=== PATIENT | female | born 1930 | race Caucasian/White ===

== ENCOUNTER 2016-08-03 10:12 | Outpatient (CLI) | payer MEDICARE, OTHER | END 2016-08-03 10:13 | disposition critical access hospital (66) | DX: R55 Syncope and collapse (principal); R42 Dizziness and giddiness; R03.1 Nonspecific low blood-pressure reading | CPT/HCPCS: A0425; A0427 ==

== ENCOUNTER 2016-08-03 10:32 | Emergency (ER) | payer MEDICARE, OTHER ==
--- NOTE | 2016-08-03 11:27 | ED Physician Documentation ---
PD HPI ALTERED MENTAL STATUS - Stated complaint Stated Complaint: SYNCOPE - Chief complaint Chief Complaint: General - History obtained from History obtained from: Patient - History of Present Illness Timing - onset: Today Timing - duration: Minutes Timing - details: Abrupt onset, Now resolved Quality / character: Less responsive (She was sitting on toilet and then had less alertness, near syncope. Was pale. EMS arrived and got her flat and gave some IV fluids with prompt improvement. She is feeling okay enroute.) Associated symptoms: No: Fever, Headache, Cough, NVD Contributing factors: No: Recent med change, Recent illness Basline status: Alert and oriented X 3 Similar symptoms before: No diagnosis (has had some near fainting on toilet in the past.) Review of Systems Constitutional: denies: Fever, Chills Nose: denies: Rhinorrhea / runny nose, Congestion Throat: denies: Sore throat Cardiac: denies: Chest pain / pressure, Palpitations, Pedal edema, Calf pain Respiratory: denies: Dyspnea, Cough, Wheezing GI: denies: Abdominal Pain, Nausea, Vomiting, Diarrhea : denies: Dysuria, Frequency Skin: denies: Rash Neurologic: reports: Generalized weakness, Near syncope. denies: Focal weakness , Numbness, Difficulty speaking, Confused Endocrine: denies: Weight loss, Easy bruising / bleeding PD PAST MEDICAL HISTORY - Past Medical History Cardiovascular: Angina, [place] Respiratory: None Neuro: Parkinson's Endocrine/Autoimmune: Type 2 diabetes GI: GERD, Ulcers, Hiatal hernia PROPOSAL ANALYST: None : None HEENT: None Psych: Anxiety Musculoskeletal: None Derm: None - Past Surgical History Past Surgical History: Yes General: Cholecystectomy, Appendectomy /PROPOSAL ANALYST: Hysterectomy HEENT: Cataracts - Present Medications Home Medications: Ambulatory Orders Medication Instructions Recorded Confirmed Entacapone [Comtan] 200 mg PO QID 04/10/13 12/01/15 Carbidopa/Levodopa 25/100 [Sinemet 2 cap PO QID 12/17/13 12/01/15 25 mg/100 mg] ALPRAZolam [Xanax] 0.5 PRN 05/06/15 05/06/15 Multivitamin W/Minerals [Theragran 1 tab PO DAILY 10/26/15 10/26/15 M] Zolpidem [Ambien] 5 12/01/15 raNITIdine [Zantac] 12/01/15 - Allergies Allergies/Adverse Reactions: Allergies Allergy/AdvReac Type Severity Reaction Status Date / Time Erythropoietin Analogues Allergy Unknown Unknown Verified 05/25/14 11:04 hydrocodone bitartrate * Allergy Unknown Unknown Verified 05/25/14 11:04 [From Vicodin] Iodinated Contrast Media - Allergy Unknown Unknown Verified 05/25/14 11:04 Oral and [Iodinated Contrast Media - IV Dye] Penicillins Allergy Unknown Unknown Verified 05/25/14 11:04 ropinirole HCl * Allergy Unknown Unknown Verified 05/25/14 11:04 [From Requip] celecoxib [From Celebrex] Allergy Unknown Verified 05/06/15 14:09 cephalexin Allergy Unknown Verified 05/06/15 14:09 diclofenac sodium * Allergy Unknown Verified 05/06/15 14:09 [From Voltaren] Iodine and Iodide Containing Allergy Unknown Verified 05/06/15 14:09 Produc omeprazole [From Prilosec] Allergy jasvir Verified 05/25/14 11:04 swelling omeprazole magnesium * Allergy jasvir Verified 05/25/14 11:04 [From Prilosec] swelling peanut Allergy Unknown Verified 05/25/14 11:04 Tetracyclines Allergy Unknown Verified 05/06/15 14:09 - Social History Does the pt smoke?: No Smoking Status: Never smoker Does the pt drink ETOH?: Yes Does the pt have substance abuse?: No - Immunizations Immunizations are current?: Yes - POLST Patient has POLST: Yes POLST Status: Full Code PD ED PE NORMAL - Vitals Vital signs reviewed: Yes - General General: Alert and oriented X 3, No acute distress, Well developed/nourished - HEENT HEENT: Atraumatic, Moist mucous membranes, Pharynx benign - Neck Neck: Supple, no meningeal sign, No adenopathy, No JVD, No bruit - Cardiac Cardiac: RRR, No murmur - Respiratory Respiratory: Clear bilaterally - Abdomen Abdomen: Soft, Non tender - Female Female : Deferred - Rectal Rectal: Other (guiac negative stool in vault. 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 No: ST elevation c/w ischemia, ST depression Compare to prior EKG: Unchanged from prior EKG - Labs Labs: Laboratory Tests 08/03/16 08/03/16 08/03/16 11:55 11:55 11:55 WBC 6.9 RBC 4.05 L Hgb 13.4 Hct 38.6 MCV 95.3 MCH 33.1 H MCHC 34.8 RDW 14.0 Plt Count 132 MPV 8.7 Neut # 6.5 Lymph # 0.1 L Wheeler # 0.2 Eos # 0.0 Baso # 0.1 Absolute Nucleated RBC 0.00 Nucleated RBCs 0.0 Sodium 136 Potassium 3.9 Chloride 103 Carbon Dioxide 23 Anion Gap 10.0 BUN 30 H Creatinine 0.9 Estimated GFR (MDRD) 59 L Glucose 154 H Calcium 8.4 L Magnesium 2.1 Total Bilirubin 0.9 AST 27 ALT < 10 L Alkaline Phosphatase 48 Troponin I < 0.04 Total Protein 5.8 L Albumin 3.6 Globulin 2.2 Albumin/Globulin Ratio 1.6 Lipase 24 Urine Color Urine Clarity Urine pH Ur Specific Golden Urine Protein Urine Glucose (UA) Urine Ketones Urine Occult Blood Urine Nitrite Urine Bilirubin Urine Urobilinogen Ur Leukocyte Esterase Ur Microscopic Review Urine Culture Comments 08/03/16 12:46 WBC RBC Hgb Hct MCV MCH MCHC RDW Plt Count MPV Neut # Lymph # Wheeler # Eos # Baso # Absolute Nucleated RBC Nucleated RBCs Sodium Potassium Chloride Carbon Dioxide Anion Gap BUN Creatinine Estimated GFR (MDRD) Glucose Calcium Magnesium Total Bilirubin AST ALT Alkaline Phosphatase Troponin I Total Protein Albumin Globulin Albumin/Globulin Ratio Lipase Urine Color YELLOW Urine Clarity CLEAR Urine pH 6.0 Ur Specific Golden 1.020 Urine Protein TRACE Urine Glucose (UA) NEGATIVE Urine Ketones TRACE Urine Occult Blood NEGATIVE Urine Nitrite NEGATIVE Urine Bilirubin NEGATIVE Urine Urobilinogen 0.2 (NORMAL) Ur Leukocyte Esterase NEGATIVE Ur Microscopic Review NOT INDICATED Urine Culture Comments NOT INDICATED - Rads (name of study) chest Radiology: Prelim report reviewed (no acute process) PD MEDICAL DECISION MAKING - ED course Complexity details: reviewed results, considered differential, d/w patient, d/w family Departure - Departure Disposition: 01 Home, Self Care Clinical Impression: Near syncope Condition: Stable Record reviewed to determine appropriate education?: Yes Instructions: ED Near Syncope Unkn Follow-Up: Neftali James MD [Primary Care Provider] - Comments: Usual medications. Drink adequate fluids. Discharge Date/Time: 08/03/16 15:00
[2016-08-03] MEDS ORDERED: SODIUM CHLORIDE 0.9% 1,000 ML IV ONE (11:47)
[2016-08-03 12:02] LABS: BASOPHILS # (AUTO) 0.1 10^3/uL (0.0-0.1); BASOPHILS % (AUTO) 0.9 %; HCT - HEMATOCRIT 38.6 % (37.0-47.0); HGB - HEMOGLOBIN 13.4 g/dL (12.0-16.0); LYMPHOCYTES # (AUTO) 0.1 10^3/uL (1.5-3.5); MEAN CORPUSCULAR HEMOGLOBIN 33.1 pg (27.0-31.0); MEAN CORPUSCULAR HGB CONC 34.8 g/dL (32.0-36.0); MEAN CORPUSCULAR VOLUME 95.3 fL (81.0-99.0); MEAN PLATELET VOLUME 8.7 fL (7.9-10.8); MONOCYTES # (AUTO) 0.2 10^3/uL (0.0-1.0); MONOCYTES % (AUTO) 2.9 %; NEUTROPHILS # (AUTO) 6.5 10^3/uL (1.5-6.6); NEUTROPHILS % (AUTO) 94.2 %; RED BLOOD COUNT 4.05 10^6/uL (4.20-5.40); UNCORRECTED WHITE BLOOD COUNT 6.9 x10^3/uL; WHITE BLOOD COUNT 6.9 x10^3/uL (4.8-10.8)
[2016-08-03 12:18] LABS: ALBUMIN/GLOBULIN RATIO 1.6 (1.0-2.2); BILIRUBIN,TOTAL 0.9 mg/dL (0.2-1.0); BUN - BLOOD UREA NITROGEN 30 mg/dL (6-20); CALCIUM 8.4 mg/dL (8.5-10.3); CARBON DIOXIDE - CO2 23 mmol/L (21-32); CHLORIDE 103 mmol/L (101-111); CREATININE 0.9 mg/dL (0.4-1.0); GFR - MDRD 59 (>89); GLUCOSE 154 mg/dL (70-100); LIPASE 24 U/L (22-51); MAGNESIUM 2.1 mg/dL (1.7-2.8); POTASSIUM 3.9 mmol/L (3.5-5.0); SODIUM 136 mmol/L (135-145); TOTAL PROTEIN 5.8 g/dL (6.7-8.2)
--- NOTE | 2016-08-03 13:06 | XRAY Preliminary Report ---
Exam: XR Chest 2 View PA/LAT IMPRESSION: No acute disease. [facility] SITE ID: [id number]
[2016-08-03 13:08] LABS: BILIRUBIN,URINE NEGATIVE (NEGATIVE)
[2016-08-03 13:09] LABS: UA CHARGE (STRIP ONLY) YES; UR CULTURE IF IND NOT INDICATED
--- NOTE | 2016-08-03 13:10 | XRAY Report ---
EXAM: CHEST RADIOGRAPHY EXAM DATE: 08/03/2016 12:30 PM. CLINICAL HISTORY: Weakness today. COMPARISON: 01/30/2016. TECHNIQUE: 2 views. FINDINGS: Lungs/Pleura: Hyperexpanded with flattened diaphragm and coarse lung markings typical of COPD. No loc alized infiltrate, consolidation, effusion, or pneumothorax. Mediastinum: Heart and mediastinal contours are unremarkable. Upper lobe vessels not distended. Other: Degenerative changes. Surgical clips in right breast. IMPRESSION: No acute disease. [facility] Referring Provider Line: [phone] SITE ID: [id number]
[2016-08-03 14:27] VITALS: BP 104/63
== END 2016-08-03 15:00 | disposition home or self-care (01) ==
LOC: EDUNIT# → EDBD → ED 10:32
DX: R55 Syncope and collapse (principal); I25.2 Old myocardial infarction; G20 Parkinson's disease; E11.9 Type 2 diabetes mellitus without complications; K21.9 Gastro-esophageal reflux disease without esophagitis; Z87.11 Personal history of peptic ulcer disease
CPT/HCPCS: 36415; 51701; 71020; 80053; 81001; 81003; 83690; 83735; 84484; 85025; 87086; 93005; 93010; 99284

== ENCOUNTER 2018-02-23 10:55 | Outpatient (CLI) | payer MEDICARE, OTHER | END 2018-02-23 10:56 | disposition critical access hospital (66) | LOC: EMS 10:55 | PROVIDERS: ATTEND Surgery | DX: M25.551 Pain in right hip (principal); R10.31 Right lower quadrant pain; M25.561 Pain in right knee; W18.30XA Fall on same level, unspecified, initial encounter; Y92.098 Other place in other non-institutional residence as the place of occurrence of the external cause | CPT/HCPCS: A0425; A0429 ==

== ENCOUNTER 2018-02-23 11:12 | Emergency (ER) | payer MEDICARE, OTHER ==
--- NOTE | 2018-02-23 11:30 | ED Physician Documentation ---
PD HPI LOWER EXT INJURY - Stated complaint Stated Complaint: HIP PX - Chief complaint Chief Complaint: Trauma Ext - History obtained from History obtained from: Patient - History of Present Illness PD HPI LOW EXT INJURY LOCATION: Right, Hip, Knee Type of injury: Fall Where injury occurred: Home Timing - onset: Yesterday Timing - duration: Days (1) Timing - details: Abrupt onset, Still present Improved by: Rest, Immobilization Worsened by: Moving, Palpating Associated symptoms: No: Weakness, Numbness, Tingling Contributing factors: No: Anticoagulated Similar symptoms before: Has not had sx before Recently seen: Not recently seen - Additional information Additional information: 87-year-old female in memory care at home place has had a fall in the dining room yesterday when she turned around rapidly to see someone who was talking and she fell onto her right hip. She has complaints this morning of pain in her right groin and her right knee. Review of Systems Constitutional: denies: Fever, Chills Eyes: denies: Decreased vision Ears: denies: Ear pain Nose: denies: Congestion Throat: denies: Sore throat Cardiac: denies: Chest pain / pressure, Palpitations Respiratory: reports: Cough. denies: Dyspnea GI: reports: Nausea. denies: Abdominal Pain, Abdominal Swelling, Vomiting : denies: Dysuria, Frequency PD PAST MEDICAL HISTORY - Past Medical History Cardiovascular: Angina, [place] Respiratory: None Endocrine/Autoimmune: Type 2 diabetes GI: GERD, Ulcers, Hiatal hernia CHARGE ACCOUNT CLERK: None : None HEENT: None Psych: Anxiety Musculoskeletal: None Derm: None - Past Surgical History Past Surgical History: Yes General: Cholecystectomy, Appendectomy /CHARGE ACCOUNT CLERK: Hysterectomy HEENT: Cataracts - Present Medications Home Medications: Ambulatory Orders Medication Instructions Recorded Confirmed Entacapone [Comtan] 200 mg PO QID 04/10/13 12/01/15 Carbidopa/Levodopa 25/100 [Sinemet 2 cap PO QID 12/17/13 12/01/15 25 mg/100 mg] ALPRAZolam [Xanax] 0.5 mg ORAL TID PRN 05/06/15 05/06/15 Multivitamin W/Minerals [Theragran 1 tab PO DAILY 10/26/15 10/26/15 M] Zolpidem [Ambien] 5 mg ORAL QPM 12/01/15 raNITIdine [Zantac] 150 mg ORAL DAILY 12/01/15 Acetaminophen 325 mg PO ONCE 02/23/18 02/23/18 Aspirin 325 mg PO DAILY 02/23/18 02/23/18 Atorvastatin Calcium 20 mg PO QPM 02/23/18 02/23/18 Cyanocobalamin (Vitamin B-12) 3,000 mcg SL DAILY 02/23/18 02/23/18 [B-12] Docusate Sodium 100 mg PO DAILY 02/23/18 02/23/18 Metoprolol Succinate 25 mg PO BID 02/23/18 02/23/18 Nitroglycerin [Nitrostat] 0.4 mg SL Q5MIN PRN 02/23/18 02/23/18 - Allergies Allergies/Adverse Reactions: Allergies Allergy/AdvReac Type Severity Reaction Status Date / Time Erythropoietin Analogues Allergy Unknown Unknown Verified 05/25/14 11:04 hydrocodone bitartrate * Allergy Unknown Unknown Verified 05/25/14 11:04 [From Vicodin] Iodinated Contrast- Oral and Allergy Unknown Unknown Verified 05/25/14 11:04 IV Dye [Iodinated Contrast Media - IV Dye] Penicillins Allergy Unknown Unknown Verified 05/25/14 11:04 ropinirole HCl * Allergy Unknown Unknown Verified 05/25/14 11:04 [From Requip] celecoxib [From Celebrex] Allergy Unknown Verified 05/06/15 14:09 cephalexin Allergy Unknown Verified 05/06/15 14:09 diclofenac sodium * Allergy Unknown Verified 05/06/15 14:09 [From Voltaren] Iodine and Iodide Containing Allergy Unknown Verified 05/06/15 14:09 Produc omeprazole [From Prilosec] Allergy jasvir Verified 05/25/14 11:04 swelling omeprazole magnesium * Allergy jasvir Verified 05/25/14 11:04 [From Prilosec] swelling peanut Allergy Unknown Verified 05/25/14 11:04 Tetracyclines Allergy Unknown Verified 05/06/15 14:09 - Social History Does the pt smoke?: No Smoking Status: Never smoker Does the pt drink ETOH?: Yes Does the pt have substance abuse?: No - Immunizations Immunizations are current?: Yes - POLST Patient has POLST: Yes POLST Status: Full Code PD ED PE NORMAL - Vitals Vital signs reviewed: Yes (hypertensive ) - General General: No acute distress, Well developed/nourished - HEENT HEENT: Atraumatic, PERRL, EOMI - Neck Neck: Supple, no meningeal sign - Cardiac Cardiac: RRR, No murmur - Respiratory Respiratory: No respiratory distress, Clear bilaterally - Abdomen Abdomen: Soft, Non tender - Back Back: No CVA TTP, No spinal TTP - Derm Derm: Normal color, Warm and dry, No rash - Extremities Extremities: No deformity, No edema, Other (There is pain referred to the right groin with any movement of the right hip joint. There is pain to palpation of the trochanter but with good ROM of the hip joint itself and there is no shortening or rotation of the LE. There is pain over the distal femur and knee medially but the knee moves through a ROM well .) - Neuro Neuro: painter hand 2-12 intact, No motor deficit, No sensory deficit, Normal speech Eye Opening: Spontaneous Motor: Obeys Commands Verbal: Oriented GCS Score: 15 - Psych Psych: Normal mood, Normal affect Results - Vitals Vitals: Vital Signs - 24 hr 02/23/18 02/23/18 11:13 13:12 Temperature 36 C L Heart Rate 57 L 58 L Respiratory 18 18 Rate Blood Pressure 137/76 H 132/106 H O2 Saturation 96 100 Oxygen O2 Source Room air - Labs Labs: Laboratory Tests 02/23/18 12:34 Urine Color DARK YELLOW Urine Clarity CLEAR Urine pH 7.0 Ur Specific [place] 1.020 Urine Protein NEGATIVE Urine Glucose (UA) NEGATIVE Urine Ketones TRACE Urine Occult Blood NEGATIVE Urine Nitrite NEGATIVE Urine Bilirubin NEGATIVE Urine Urobilinogen 0.2 (NORMAL) Ur Leukocyte Esterase NEGATIVE Ur Microscopic Review NOT INDICATED Urine Culture Comments NOT INDICATED - Rads (name of study) hip right Radiology: Prelim report reviewed (Impression: Moderate osteoarthritic changes present without evidence of acute fracture.), EMP read indepedently, See rad report right knee Radiology: Prelim report reviewed (Impression: Moderate osteoarthritic change without evidence of acute fracture.), EMP read indepedently, See rad report R LE CT Radiology: Prelim report reviewed (Impression: 1. Moderate osteopenia no visible fracture. Mild right hip osteoarthritis and chondrocalcinosis. Nondisplaced fracture may be difficult to visualize in an osteopenic patient. If symptoms persist MRI is recommended.), EMP read indepedently, See rad report PD MEDICAL DECISION MAKING - ED course Complexity details: reviewed old records, reviewed results, re-evaluated patient, considered differential, d/w patient, d/w family ED course: 87-year-old female with a ground-level fall onto her right side has pain in her hip and knee and no evidence of fracture with CT. She is requiring help to get in and out of bed to go to the bathroom and she will build to get this where she lives. I have indicated the patient and her daughter that she will need to come back for MRI imaging if she does not have resolution of her symptoms in 1-2 weeks. Departure - Departure Disposition: 01 Home, Self Care Clinical Impression: Contusion of right hip Qualifiers: Encounter type: initial encounter Qualified Code(s): S70.01XA - Contusion of right hip, initial encounter Knee sprain Qualifiers: Encounter type: initial encounter Involved ligament of knee: unspecified ligament Laterality: right Qualified Code(s): S83.91XA - Sprain of unspecified site of right knee, initial encounter Condition: Stable Instructions: ED Sprain Knee, ED Contusion Hip Follow-Up: Neftali James MD [Primary Care Provider] -
[2018-02-23 12:45] LABS: BILIRUBIN,URINE NEGATIVE (NEGATIVE); GLUCOSE, URINE (UA) NEGATIVE (NEGATIVE); KETONES,URINE (UA) TRACE mg/dL (NEGATIVE); LEUKOCYTE ESTERASE, URINE NEGATIVE (NEGATIVE); NITRITE,URINE NEGATIVE (NEGATIVE); OCCULT BLOOD,URINE NEGATIVE (NEGATIVE); PROTEIN,URINE NEGATIVE (NEGATIVE); UROBILINOGEN,URINE 0.2 (NORMAL) E.U./dL (NORMAL)
[2018-02-23 12:46] LABS: CLARITY,URINE CLEAR (CLEAR)
--- NOTE | 2018-02-23 12:52 | XRAY Report ---
Reason: fall hip and groin pain Procedure Date: 02/23/2018 Accession Number: [id number] / [id number] Procedure: XR - Hip w/Pelvis 2-3V RT CPT Code: FULL RESULT: EXAM: RIGHT HIP AND PELVIS RADIOGRAPHY EXAM DATE: 02/23/2018 12:12 PM. HISTORY: Fall hip and groin pain. COMPARISONS: Previous exam of 01/12/2014. TECHNIQUE: 1 view of the pelvis and 1 view of the hip- found under exam of shoulder listed on same date. FINDINGS: Bones: Normal. No fracture or bone lesion. Joints: Moderate osteoarthritic changes present. Soft Tissues: Normal. No soft tissue swelling. IMPRESSION: Moderate osteoarthritic changes present without evidence of acute fracture. [facility]
--- NOTE | 2018-02-23 12:56 | XRAY Report ---
Reason: fall medial knee pain Procedure Date: 02/23/2018 Accession Number: [id number] / [id number] Procedure: XR - Knee 4 View RT CPT Code: FULL RESULT: EXAM: RIGHT KNEE RADIOGRAPHY EXAM DATE: 02/23/2018 12:12 PM. CLINICAL HISTORY: Medial knee pain post fall. COMPARISON: None. TECHNIQUE: 4 views (scattered in wrongly listed exams of the shoulder and knee, with same date). FINDINGS: Bones: Subchondral sclerosis present. No fractures or bone lesions. Joints: Moderate osteoarthritic changes seen. No evidence of joint effusion present. Soft Tissues: Prominent vascular calcifications noted. No soft tissue swelling. IMPRESSION: Moderate osteoarthritic changes without evidence of acute fracture. [facility]
--- NOTE | 2018-02-23 13:10 | CT Report ---
Reason: fall hip and groin pain Procedure Date: 02/23/2018 Accession Number: [id number] / [id number] Procedure: CT - Lower Extremity Right W/O CPT Code: FULL RESULT: EXAM: RIGHT HIP CT WITHOUT CONTRAST. EXAM DATE: 02/23/2018 12:24 PM. CLINICAL HISTORY: Fall hip and groin pain. COMPARISON: None. TECHNIQUE: Thin-section axial images were acquired of the hip without contrast. Post-processing: Coronal and sagittal reformats. Other: None. In accordance with CT protocol optimization, one or more of the following dose reduction techniques were utilized for this exam: automated exposure control, adjustment of mA and/or KV based on patient size, or use of iterative reconstructive technique. FINDINGS: Bones: Moderate generalized osteopenia. Joints: Mild right hip osteoarthritis. There is chondrocalcinosis. The right sacroiliac joint is fused. Musculature: Normal. No fatty atrophy. Other: The visualized intraperitoneal structures are unremarkable. IMPRESSION: 1. Moderate osteopenia. No visible fracture. Mild right hip osteoarthritis and chondrocalcinosis. 2. Nondisplaced fracture may be difficult to visualize in an osteopenic patient. If symptoms persist, MRI is recommended. [facility]
[2018-02-23 13:13] VITALS: BP 132/106
[2018-02-23] MEDS ORDERED: ACETAMINOPHEN 325 MG TABLET PO STA (13:52)
== END 2018-02-23 14:03 | disposition home or self-care (01) ==
LOC: EDUNIT# → ED 11:12
DX: S70.01XA Contusion of right hip, initial encounter (principal); S83.91XA Sprain of unspecified site of right knee, initial encounter; W18.39XA Other fall on same level, initial encounter; Y92.191 Dining room in other specified residential institution as the place of occurrence of the external cause; E11.9 Type 2 diabetes mellitus without complications
CPT/HCPCS: 73502; 73564; 73700; 81003; 99283; A9270; 81001; 87086